=== PATIENT | male | born 1985 ===

== ENCOUNTER 2016-08-28 11:24 | Emergency (ER) | payer OTHER ==
[~2016-08-28] VITALS: Ht 182.9 cm; Wt 82.0 kg
[2016-08-28 11:29] VITALS: BP 156/63; PULSE 89; RESP 24; TEMP 98.1; O2SAT 93
--- NOTE | 2016-08-28 11:48 | PD ---
HPI Chief Complaint: Laceration/Skin Injury Time Seen by Provider: 11:48 Travel History International Travel<30 days: No Contact w/Intl Traveler<30days: No Traveled to known affect area: No PFSH Social History Alcohol Use: Yes Tobacco Use: Yes Substance Use: No Allergies-Medications (Allergen,Severity, Reaction): Coded Allergies: No Known Allergies (Unverified , 08/28/16) Data Data Last Documented VS Vital Signs Date Time Temp Pulse Resp B/P Pulse Ox O2 Delivery O2 Flow Rate FiO2 08/28/16 11:29 98.1 89 24 156/63 93 Room Air MDM Medical Decision Making Medical Screen Exam Complete: Yes Emergency Medical Condition: Yes Medical Record Reviewed: Yes Aundrea Dsouza Aug 28, 2016 11:48
--- NOTE | 2016-08-28 11:57 | PD ---
HPI . Laceration Chief Complaint: Laceration/Skin Injury Time Seen by Provider: 11:47 Travel History International Travel<30 days: No Contact w/Intl Traveler<30days: No Traveled to known affect area: No History of Present Illness HPI Patient presents with a laceration to the volar aspect of the left wrist. 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 He slipped and inadvertently cut his left arm. He does not know the date of his last tetanus shot. He reports constant pain since the time of the injury which he rates as 5 /10. He denies any numbness distal to the injury or any difficulty with movement. [facility] Social History Alcohol Use: Yes Tobacco Use: Yes Substance Use: No Allergies-Medications (Allergen,Severity, Reaction): Coded Allergies: No Known Allergies (Unverified , 08/28/16) Review of Systems Except as stated in HPI: all other systems reviewed are Neg Skin: Positive Other Physical Exam Narrative GENERAL: Awake and alert and in no acute distress. SKIN: Warm and dry. He has a vertical laceration on the volar aspect of the left wrist. Bleeding is controlled. HEAD: Atraumatic. Normocephalic. EYES: Pupils equal and round. NECK: Trachea midline. CARDIOVASCULAR: Regular rate and rhythm. RESPIRATORY: No accessory muscle use. MUSCULOSKELETAL: No obvious deformities. No edema. NEUROLOGICAL: Awake and alert. No obvious cranial nerve deficits. Motor grossly within normal limits. Normal speech. PSYCHIATRIC: Appropriate mood and affect; insight and judgment normal. Data Data Last Documented VS Vital Signs Date Time Temp Pulse Resp B/P Pulse Ox O2 Delivery O2 Flow Rate FiO2 08/28/16 11:29 98.1 89 24 156/63 93 Room Air Orders Lidocaine 1% Inj (50 Ml) (Xylocaine 1% I (08/28/16 12:00) Tetanus/Diphtheria Tox Adult (Tetanus/Di (08/28/16 12:00) Acetamin-Hydrocod 325-5 Mg (Reeds 5-325 (08/28/16 12:00) MDM Medical Decision Making Medical Screen Exam Complete: Yes Emergency Medical Condition: Yes Differential Diagnosis Differential diagnosis includes but is not limited to skin laceration, muscular laceration, tendon laceration, neurovascular laceration. Narrative Course Patient presents for evaluation and treatment of a laceration to his left wrist. His tetanus needs to be updated. Procedures Procedure Narrative LACERATION LOCATION: Left wrist LENGTH: 7 cm NUMBER OF STITCHES/MILLI: 14 REPAIR: The area of the laceration was prepped with Betadine and sterilely draped. The laceration was infiltrated with 7 cc of 1% plain lidocaine. The wound was copiously irrigated and explored without evidence of foreign body, tendon injury or neurovascular injury. The wound was closed using milli. This was a single layer repair. A sterile dressing was applied. The patient was advised to keep the dressing clean and dry. Patient tolerated the procedure well. Diagnosis Primary Impression: Laceration of left wrist Qualified Code: S61.512A - Laceration of left wrist, initial encounter Patient Instructions: General Instructions, Laceration (DC), Narcotic given in the ED Additional Instructions: Clean the wound twice daily with soap and water. Apply a thin layer of Neosporin ointment after you wash it. See your doctor in 7 days for suture removal. Seek care sooner for redness, drainage, warmth, unusual pain. Med/Other Pt SpecificInfo: Wound Care Disposition: 01 DISCHARGE HOME Condition: Stable Christi Reis MD Aug 28, 2016 11:57
[2016-08-28] MEDS ORDERED: ACETAMINOPHEN/HYDROcodone 325 MG/5 MG TAB PO ONE (12:00)
[2016-08-28] MEDS ORDERED: TETANUS/DIPHTHERIA TOXOID ADULT 0.5 ML VIAL IM ONE (12:00)
[2016-08-28] MEDS ORDERED: LIDOCAINE HCL 1% 50 ML VIAL INFIL ONE (12:00)
== END 2016-08-28 13:07 | disposition home or self-care (01) ==
LOC: NEPD 11:24
DX: S61.512A Laceration without foreign body of left wrist, initial encounter (principal); W31.1XXA Contact with metalworking machines, initial encounter; Y93.89 Activity, other specified; Z23 Encounter for immunization
CPT/HCPCS: 12002; 90471; 90714